=== PATIENT | female | born 1990 | race African-American/Black ===

== ENCOUNTER 2018-09-30 23:32 | Emergency (ER) | payer OTHER ==
--- NOTE | 2018-10-01 00:32 | PDOC ---
History of Present Illness <Mel Marie - Last Filed: 10/01/18 00:32> - History of Present Illness Initial Comments: This patient is a 27 year old female with no significant PMHx , who presents with left sided back pain since 4pm. She states pain is located near the left scapula, does not radiate and worse upon inhalation and movement. She came in today because she states it is affecting her sleep She also endorses a headache. Denies h/o trauma. Denies any recent fever, chills, cough, nausea, vomiting, diarrhea. Surgical Hx: denies Social Hx: denies cigarette, alcohol or drug use. PCP: Located at [address] [place] [address]. 10/01/18 01:19 <Jannet Cruz - Last Filed: 10/01/18 01:19> <Kerline Lowe - Last Filed: 10/01/18 04:19> - General Chief Complaint: Back Pain Stated Complaint: BACK PAIN/DIFFICULTY BREATHING Time Seen by Provider: 10/01/18 00:16 Past History - Suicide/Smoking/Psychosocial Hx Smoking Status: No Smoking History: Never smoked Number of Cigarettes Smoked Daily: 0 <Mel Marieh - Last Filed: 10/01/18 00:32> <Jannet Cruz - Last Filed: 10/01/18 01:19> <Kerline Lowe - Last Filed: 10/01/18 04:19> - Past Medical History Allergies/Adverse Reactions: Allergies Allergy/AdvReac Type Severity Reaction Status Date / Time No Known Allergies Allergy Verified 02/10/13 14:50 Home Medications: Ambulatory Orders No Home Medications 0 dose .ROUTE UTDICT 02/10/13 Nitrofurantoin Monohyd/M-Cryst [Macrobid -] 100 mg PO BID #14 capsule 10/01/18 Review of Systems - Review of Systems Comments:: CONSTITUTIONAL: Absent: fever, no chills, no fatigue EYES: Absent: visual changes ENT: Absent: ear pain, no sore throat CARDIOVASCULAR: Absent: chest pain, no palpitations RESPIRATORY: Absent: cough, no SOB GI: Absent: abdominal pain, no nausea, no vomiting, no constipation, no diarrhea GENITOURINARY: Absent: dysuria, no frequency, no hematuria MUSCULOSKELETAL: Present: left scapula pain Absent: no arthralgia SKIN: Absent: rash NEURO: Present: headache 10/01/18 00:49 <Jannet Cruz - Last Filed: 10/01/18 01:19> *Physical Exam - Physical Exam Comments: GENERAL: Well-appearing, well-nourished. No apparent distress. HEENT: Normocephalic, atraumatic. PERRL, EOM intact. NECK: No JVD or bruits. CARDIOVASCULAR: Regular rate and rhythm. PULMONARY: Clear to auscultation bilaterally. ABDOMEN: Soft, non-distended, non-tender. EXTREMITIES: Normal ROM in all four extremities. No gross deformities. SKIN: Warm, dry. No rash NEUROLOGICAL: No focal neurological deficits. 10/01/18 00:52 <Jannet Cruz - Last Filed: 10/01/18 01:19> - Vital Signs Last Vital Signs Temp Pulse Resp BP Pulse Ox 98.4 F 80 18 114/73 99 09/30/18 23:57 09/30/18 23:57 09/30/18 23:57 09/30/18 23:57 09/30/18 23:57 <Kerline Lowe - Last Filed: 10/01/18 04:19> Moderate Sedation - Procedure Monitoring Vital Signs: Procedure Monitoring Vital Signs Temperature 98.4 F 09/30/18 23:57 Pulse Rate 80 09/30/18 23:57 Respiratory Rate 18 09/30/18 23:57 Blood Pressure 114/73 09/30/18 23:57 O2 Sat by Pulse Oximetry (%) 99 09/30/18 23:57 <Kerline Lowe - Last Filed: 10/01/18 04:19> ED Treatment Course - LABORATORY CBC & Chemistry Diagram: 10/01/18 01:23 10/01/18 01:23 - ADDITIONAL ORDERS Additional order review: Laboratory Results 10/01/18 10/01/18 10/01/18 01:23 01:23 00:30 D-Dimer < 215 Sodium Cancelled Potassium Cancelled Chloride Cancelled Carbon Dioxide Cancelled Anion Gap Cancelled BUN Cancelled Creatinine Cancelled Creat Clearance w eGFR Cancelled Random Glucose Cancelled Calcium Cancelled Urine Color Yellow Urine Appearance Cloudy Urine pH 6.0 Ur Specific [place] 1.028 Urine Protein Negative Urine Glucose (UA) Negative Urine Ketones Negative Urine Blood Negative Urine Nitrite Negative Urine Bilirubin Negative Urine Urobilinogen 4.0 e.u/dl H Ur Leukocyte Esterase 1+ H Urine WBC (Auto) 3 Urine RBC (Auto) 4 Ur Epithelial Cells Moderate Urine Bacteria Rare Urine Mucus Many Urine HCG, Qual 10/01/18 00:30 D-Dimer Sodium Potassium Chloride Carbon Dioxide Anion Gap BUN Creatinine Creat Clearance w eGFR Random Glucose Calcium Urine Color Urine Appearance Urine pH Ur Specific [place] Urine Protein Urine Glucose (UA) Urine Ketones Urine Blood Urine Nitrite Urine Bilirubin Urine Urobilinogen Ur Leukocyte Esterase Urine WBC (Auto) Urine RBC (Auto) Ur Epithelial Cells Urine Bacteria Urine Mucus Urine HCG, Qual Negative 10/01/18 01:23 RBC 4.37 MCV 84.5 MCHC 33.7 RDW 13.9 MPV 9.5 Neutrophils % 47.0 Lymphocytes % 44.0 H Monocytes % 6.8 Eosinophils % 1.8 Basophils % 0.4 <Kerline Lowe - Last Filed: 10/01/18 04:19> Medical Decision Making - Medical Decision Making 10/01/18 03:33 Pt signed out to [place]; her Ddimer is normal. Labs normal; CXR normal. Exam normal. vitals normal <Kerline Lowe - Last Filed: 10/01/18 04:19> *DC/Admit/Observation/Transfer <Mel Marie - Last Filed: 10/01/18 00:32> - Attestations Scribe Attestion: 10/01/18 00:51 Documentation prepared by Jannet Cruz, acting as medical equipment repairer for Mel Marie MD. <Jannet Cruz - Last Filed: 10/01/18 01:19> - Discharge Dispostion Decision to Admit order: No <Kerline Lowe - Last Filed: 10/01/18 04:19> Diagnosis at time of Disposition: UTI (urinary tract infection), Chest pain - Discharge Dispostion Disposition: HOME Condition at time of disposition: Improved - Prescriptions Prescriptions: Nitrofurantoin Monohyd/M-Cryst [Macrobid -] 100 mg PO BID #14 capsule - Patient Instructions Printed Discharge Instructions: DI for Urinary Tract Infection (UTI) - Post Discharge Activity Forms/Work/School Notes: Back to Work
[2018-10-01 00:54] LABS: URINE APPEARANCE CLOUDY; URINE BILIRUBIN NEGATIVE (<2.0 mg/dL); URINE COLOR YELLOW; URINE GLUCOSE (UA) NEGATIVE (NEGATIVE); URINE KETONE NEGATIVE (NEGATIVE); URINE LEUK ESTERASE 1+ (NEGATIVE); URINE NITRITE NEGATIVE (NEGATIVE); URINE PROTEIN NEGATIVE (NEGATIVE); URINE UROBILINOGEN 4.0 E.U/dl mg/dL (0.2-1.0)
[2018-10-01 00:56] VITALS: BMI 23.3
[2018-10-01 00:57] LABS: EPI CELLS MODERATE /HPF (FEW); URINE BACTERIA RARE /hpf (NONE SEEN); URINE MUCUS MANY
[2018-10-01 01:40] LABS: BASO % 0.4 % (0-2.0); EOS % 1.8 % (0-4.5); HEMATOCRIT 36.9 % (32.4-45.2); HEMOGLOBIN 12.4 GM/dL (10.7-15.3); MCH 28.5 pg (25.7-33.7); MCHC 33.7 g/dl (32.0-36.0); MEAN CELL VOLUME 84.5 fl (80-96); MEAN PLT VOLUME 9.5 fl (7.5-11.1); MONO % 6.8 % (3.8-10.2); PLATELET COUNT 215 K/MM3 (134-434); RBC 4.37 M/mm3 (3.60-5.2); RDW 13.9 % (11.6-15.6); WHITE BLOOD COUNT 5.8 K/mm3 (4.0-10.0)
[2018-10-01 04:25] VITALS: BP 128/71; PULSE 88; TEMP 98.3
--- NOTE | 2018-10-01 11:08 | EKG ---
Test Reason : Blood Pressure : / mmHG Vent. Rate : 075 BPM Atrial Rate : 075 BPM P-R Int : 168 ms QRS Dur : 074 ms QT Int : 376 ms P-R-T Axes : 046 053 037 degrees QTc Int : 419 ms NORMAL SINUS RHYTHM NORMAL ECG NO PREVIOUS ECGS AVAILABLE Confirmed by DARSHANA BANKS MD ([id number]) on 10/01/2018 11:08:15 AM Referred By: Confirmed By:DARSHANA BANKS MD
== END 2018-10-01 04:19 | disposition home or self-care (01) ==
LOC: JER 23:32
DX: N39.0 Urinary tract infection, site not specified (principal); R07.9 Chest pain, unspecified
CPT/HCPCS: 36415; 71046-TC-FY; 81003; 81015; 84703; 85025; 85379; 93005; 93010; 99281-25

== ENCOUNTER 2019-04-04 19:00 | Emergency (ER) | payer OTHER | END 2019-04-04 20:25 | disposition home or self-care (01) | LOC: JERFT 19:00 ==

== ENCOUNTER 2019-10-02 22:15 | Emergency (ER) | payer OTHER ==
[2019-10-02 22:39] VITALS: BP 114/71; PULSE 78; TEMP 98.8; BMI 23.5
--- NOTE | 2019-10-02 22:59 | PDOC ---
Documentation entered by Luz Shabazz SCRIBE, acting as scribe for Haresh Tate MD. Haresh Tate MD: This documentation has been prepared by the scribe, Luz Shabazz SCRIBE, under my direction and personally reviewed by me in its entirety. I confirm that the documentation accurately reflects all work , treatment, procedures, and medical decision making performed by me. History of Present Illness - General Chief Complaint: Vaginal Bleeding Stated Complaint: VAG BLEED History Source: Patient Exam Limitations: No Limitations - History of Present Illness Initial Comments: 10/02/19 22:58 The patient is a 28-year-old female, [id number], who presents to the emergency department with vaginal bleeding. The patient reports following up with her OB a few days back, where she had blood work done and u/s. The patient reports u/s was significant for heartbeats. The patient reports during the visit, she did have some vaginal spotting, which has resolved, until today. The patient reports her OB called yesterday with the lab results, which was significant for the progesterone of 4.8 and was prescribed promethazine. The patient states she was out having lunch when she had an onset of vaginal bleeding. The patient describes it as darker than prior episodes, associated with abdominal cramping. Denies urinary symptoms. The patient reports she also got a call from the OB tonight states she had a vaginal bacterial infection for which she was prescribed a 5-day gel course. PAST MEDICAL HISTORY: no significant history PAST SURGICAL HISTORY: no significant history FAMILY HISTORY: no pertinent history SOCIAL HISTORY: Pt lives with family and is employed. MEDICATIONS: reviewed ALLERGIES: As per nursing notes Review of system: General: No fevers or chills, no weakness, no weight loss HEENT: No change in vision. No sore throat,. No ear pain CardioVascular: No chest pain or shortness of breath Respiratory: No cough, or wheezing. Gastrointestinal: +abdominal cramping. no nausea, vomiting, diarrhea or constipation, No rectal bleeding Genitourinary: +vaginal bleeding. No dysuria, hematuria, or frequency Musculoskeletal: No joint or muscle pain or swelling Neurologic: No headache, vertigo, dizziness or loss of consciousness Psychiatric: nor depression Skin: No rashes or easy bruising Endocrine: no increased thirst or abnormal weight change Allergic: no skin or latex allergy All other systems reviewed and normal Physical exam: GENERAL: The patient is awake, alert, and fully oriented, in no acute distress. HEAD: Normal with no signs of trauma. EYES: Pupils equal, round and reactive to light, extraocular movements intact, sclera anicteric, conjunctiva clear. EXTREMITIES: Normal range of motion, no edema. NEUROLOGICAL: Normal speech, normal gait. PSYCH: Normal mood, normal affect. SKIN: Warm, Dry, normal turgor, no rashes or lesions noted. : +darkish discharge vaginally, Os closed, no adnexal tenderness or masses. 10/03/19 01:44 Assessment and plan: This is a 28-year-old female comes in with vaginal bleeding. Patient is 7 weeks by dates. Patient had an ultrasound that showed a normal IUP, normal size with heart rate it also showed a small subchorionic bleed. Patient is aware of the ultrasound report Patient's hCG was 33,858. Patient is type a positive Patient discharged we will follow-up with her OB 10/03/19 01:45 Past History - Past Medical History Allergies/Adverse Reactions: Allergies Allergy/AdvReac Type Severity Reaction Status Date / Time No Known Allergies Allergy Verified 04/04/19 19:24 Home Medications: Ambulatory Orders Cyclobenzaprine HCl [Flexeril -] 10 mg PO HS #10 tablet 04/04/19 Ibuprofen 600 mg PO Q6H #30 tablet 04/04/19 COPD: No - Psycho Social/Smoking Cessation Hx Smoking Status: No Smoking History: Never smoked Have you smoked in the past 12 months: No Number of Cigarettes Smoked Daily: 0 Hx Alcohol Use: No Drug/Substance Use Hx: No Substance Use Type: None ED Treatment Course - LABORATORY CBC & Chemistry Diagram: 10/02/19 23:00 10/02/19 23:00 Discharge - Discharge Information Problems reviewed: Yes Clinical Impression/Diagnosis: Vaginal bleeding during Condition: Good Disposition: HOME - Admission No - Follow up/Referral - Patient Discharge Instructions Additional Instructions: Return to the emergency department immediately with ANY new, persistent or worsening symptoms. Continue any medications as previously prescribed by your physician. You should follow up with your OB doctor as soon as possible regarding today's emergency department visit. . Please make sure your doctor reviews the results of your emergency evaluation. Thank you for coming to the Emergency Department today for your care. It was a pleasure to see you today. Please note that your evaluation is INCOMPLETE until you follow-up with your doctor. - Post Discharge Activity
[2019-10-02 23:25] LABS: BASO % 0.6 % (0-2.0); EOS % 6.6 % (0-4.5); HEMATOCRIT 34.5 % (32.4-45.2); HEMOGLOBIN 11.2 GM/dl (10.7-15.3); LYMPH % 30.8 % (8-40); MCHC 32.6 g/dl (32.0-36.0); MEAN PLT VOLUME 9.2 fl (7.5-11.1); MONO % 8.6 % (3.8-10.2); NEUT % 53.4 % (42.8-82.8); PLATELET COUNT 184 K/MM3 (134-434); RBC 4.01 M/mm3 (3.60-5.2); RDW 12.1 % (11.6-15.6); WHITE BLOOD COUNT 6.4 K/mm3 (4.0-10.8)
[2019-10-02 23:37] LABS: BILIRUBIN,TOTAL 0.4 mg/dl (0.2-1); CALCIUM 9.4 mg/dl (8.5-10); CREATININE 0.7 mg/dl (0.55-1.3); POTASSIUM 3.8 mmol/L (3.5-5.1); TOT PROT 7.1 g/dl (6.4-8.2)
== END 2019-10-03 01:53 | disposition home or self-care (01) ==
LOC: FER 22:15
DX: O26.891 Other specified pregnancy related conditions, first trimester (principal); Z3A.01 Less than 8 weeks gestation of pregnancy; N93.9 Abnormal uterine and vaginal bleeding, unspecified
CPT/HCPCS: 36415; 76817-TC; 80053; 84702; 85025; 86850; 86900; 86901; 99284-25

== ENCOUNTER 2019-11-11 22:23 | Emergency (ER) | payer OTHER ==
[2019-11-11 22:32] VITALS: BP 116/64; PULSE 63; TEMP 98.3; BMI 24.4
[2019-11-12 00:44] LABS: PH,URINE 6.5 (5.0-8.0); URINE APPEARANCE CLEAR; URINE BILIRUBIN NEGATIVE (NEGATIVE); URINE COLOR YELLOW; URINE GLUCOSE (UA) NEGATIVE (NEGATIVE); URINE KETONE NEGATIVE (NEGATIVE); URINE LEUK ESTERASE NEGATIVE (NEGATIVE); URINE NITRITE NEGATIVE (NEGATIVE); URINE PROTEIN NEGATIVE (NEGATIVE); URINE UROBILINOGEN 0.2 mg/dL (0.2-1.0)
--- NOTE | 2019-11-12 01:12 | PDOC ---
Documentation entered by Isamar Acosta SCRIBE, acting as scribe for Mel Marie MD. Mel Marie MD: This documentation has been prepared by the Karla jeffrey Nirvannie, SCRIBE, under my direction and personally reviewed by me in its entirety. I confirm that the documentation accurately reflects all work, treatment, procedures, and medical decision making performed by me. History of Present Illness - General Chief Complaint: Vaginal Bleeding Stated Complaint: BLEEDING 13WKS Time Seen by Provider: 11/11/19 23:44 History Source: Patient Exam Limitations: No Limitations - History of Present Illness Initial Comments: 11/12/19 00:18 The patient is a 29 year old 12 weeks female with no significant past medical history, who presents to the emergency department with vaginal bleeding and pelvic cramping. As per patient, she was evaluated in the ED 10/02 at which time she was seen to have a single live IUP at 6 weeks 5 days with a heartbeat. Patient notes her symptoms onset once again, prompting her arrival to the ED. She denies recent fevers, chills, headache or dizziness. She denies recent dysuria, frequency, urgency or hematuria. She denies recent chest pain or shortness of breath. 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 Wiggins ([place], last visit 11/04) Past History - Past Medical History Allergies/Adverse Reactions: Allergies Allergy/AdvReac Type Severity Reaction Status Date / Time No Known Allergies Allergy Verified 11/11/19 22:29 Home Medications: Ambulatory Orders Cyclobenzaprine HCl [Flexeril -] 10 mg PO HS #10 tablet 04/04/19 Ibuprofen 600 mg PO Q6H #30 tablet 04/04/19 COPD: No - Psycho Social/Smoking Cessation Hx Smoking Status: No Smoking History: Never smoked Have you smoked in the past 12 months: No Number of Cigarettes Smoked Daily: 0 Hx Alcohol Use: No Drug/Substance Use Hx: No Substance Use Type: None Review of Systems - Review of Systems Able to Perform ROS?: Yes Comments:: 11/12/19 00:20 CONSTITUTIONAL: Absent: fever, chills, diaphoresis, generalized weakness, malaise, loss of appetite HEENT: Absent: rhinorrhea, nasal congestion, throat pain, throat swelling, difficulty swallowing, mouth swelling, ear pain, eye pain, visual Changes CARDIOVASCULAR: Absent: chest pain, syncope, palpitations, irregular heart rate, lightheadedness , peripheral edema RESPIRATORY: Absent: cough, shortness of breath, dyspnea with exertion, orthopnea, wheezing, stridor, hemoptysis GASTROINTESTINAL: Absent: abdominal pain, abdominal distension, nausea, vomiting, diarrhea, constipation, melena, hematochezia GENITOURINARY: Present: Vaginal bleeding, pelvic cramping. Absent: dysuria, frequency, urgency, hesitancy, hematuria, flank pain, genital pain MUSCULOSKELETAL: Absent: myalgia, arthralgia, joint swelling SKIN: Absent: rash, itching, pallor HEMATOLOGIC/IMMUNOLOGIC: Absent: easy bleeding, easy bruising, lymphadenopathy, frequent infections ENDOCRINE: Absent: unexplained weight gain, unexplained weight loss, heat intolerance, cold intolerance NEUROLOGIC: Absent: headache, focal weakness or paresthesias, dizziness, unsteady gait, seizure, mental status changes, bladder or bowel incontinence PSYCHIATRIC: Absent: anxiety, depression, suicidal or homicidal ideation, hallucinations. All Other Systems: Reviewed and Negative *Physical Exam - Vital Signs Last Vital Signs Temp Pulse Resp BP Pulse Ox 98.3 F 63 18 116/64 100 11/11/19 22:29 11/11/19 22:29 11/11/19 22:29 11/11/19 22:29 11/11/19 22:29 - Physical Exam 11/12/19 00:21 GENERAL: Well developed, well nourished. Awake and alert. No acute distress. HEENT: Normocephalic, atraumatic. PERRLA, EOMI. No conjunctival pallor. Sclera are non- icteric. Moist mucous membranes. Oropharynx is clear. NECK: Supple. Full ROM. No JVD. Carotid pulses 2+ and symmetric, without bruits. No thyromegaly. No lymphadenopathy. CARDIOVASCULAR: Regular rate and rhythm. No murmurs, rubs, or gallops. Distal pulses are 2+ and symmetric. PULMONARY: No evidence of respiratory distress. Lungs clear to auscultation bilaterally. No wheezing, rales or rhonchi. ABDOMINAL: Soft. Non-tender. Non-distended. No rebound or guarding. No organomegaly. Normoactive bowel sounds. MUSCULOSKELETAL Normal range of motion at all joints. No bony deformities or tenderness. No CVA tenderness. EXTREMITIES: No cyanosis. No clubbing. No edema. No calf tenderness. SKIN: Warm and dry. Normal capillary refill. No rashes. No jaundice. NEUROLOGICAL: Alert, awake, appropriate. Cranial nerves 2-12 intact. No deficits to light touch and temperature in face, upper extremities and lower extremities. No motor deficits in the in face, upper extremities and lower extremities. Normoreflexic in the upper and lower extremities. Normal speech. Toes are down- going bilaterally. Gait is normal without ataxia. PSYCHIATRIC: Cooperative. Good eye contact. Appropriate mood and affect. ED Treatment Course - ADDITIONAL ORDERS Additional order review: Laboratory Results 11/12/19 00:01 Urine Color Yellow Urine Appearance Clear Urine pH 6.5 Ur Specific [place] 1.007 L Urine Protein Negative Urine Glucose (UA) Negative Urine Ketones Negative Urine Blood Negative Urine Nitrite Negative Urine Bilirubin Negative Urine Urobilinogen 0.2 Ur Leukocyte Esterase Negative - RADIOLOGY Radiology Studies Ordered: Category Date Time Status <14WKS US [US] Stat Ultrasound 11/12/19 23:57 Taken Radiograph Interpretation: 11/12/19 01:07 EXAM: <14WKS US and pelvic duplex HISTORY: Threatened FINDINGS: Ultrasound :Uterus is anteverted and measures 12.4centimeters in length. There is a single live IUP with estimated gestational age of 12weeks and 2days. There is a normal heart rate of 154beats per minute. There is no subchorionic bleed. The right ovary measures 3.8centimeters in length and appears normal. The left ovary measures 4.0centimeters in length and appears normal. There is no significant free fluid. Pelvic duplex: There is normal arterial and venous flow in both ovaries IMPRESSION: Live IUP estimated age 12 weeks 2 days without definite abnormalities. Read by: Phil Fan MD Medical Decision Making - Medical Decision Making 11/12/19 01:10 Transvaginal ultrasound showed a single live IUP with estimated gestational age of 12 weeks and 2 days There is a normal heart rate of 154 bpm There is no subchorionic bleed no The right ovary measures 3.8 cm in length and appears normal The left ovary measures 4 cm in length and appears normal There is no significant free fluid There is both normal arterial and venous flow to both ovaries Impression single live IUP of 12 weeks and 2 days without any definite abnormalities Urinalysis was negative for any infection imp threatened AB plan follow up with 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
== END 2019-11-12 01:22 | disposition home or self-care (01) ==
LOC: JER 22:23
DX: O26.891 Other specified pregnancy related conditions, first trimester (principal); O21.0 Mild hyperemesis gravidarum; Z3A.12 12 weeks gestation of pregnancy
CPT/HCPCS: 76801-TC; 81003; 99281-25

== ENCOUNTER 2022-09-23 15:51 | Emergency (ER) | payer OTHER ==
[2022-09-23 16:27] VITALS: BP 104/65; PULSE 75; RESP 20; TEMP 98.3; BMI 25.8
[2022-09-23] MEDS ORDERED: KETOROLAC TROMETHAMINE 30 MG/1 ML VIAL IM ONE (17:07)
[2022-09-23] MEDS ORDERED: LIDOCAINE 5% TOPICAL PATCH TP ONE ×2 (17:07→18:53)
[2022-09-23] MEDS ORDERED: METHOCARBAMOL 500 MG TABLET PO ONE (17:07)
[2022-09-23] MEDS ORDERED: METHOCARBAMOL 500 MG TABLET ONE (17:09)
[2022-09-23] MEDS ORDERED: LIDOCAINE 5% TOPICAL PATCH ONE ×2 (17:09→19:03)
[2022-09-23] MEDS ORDERED: KETOROLAC TROMETHAMINE 30 MG/1 ML VIAL ONE (17:09)
[2022-09-23] MEDS ORDERED: ACETAMINOPHEN 325 MG TABLET (FP) PO ONE (18:53)
[2022-09-23] MEDS ORDERED: ACETAMINOPHEN 325 MG TABLET (FP) ONE (19:04)
[2022-09-23] MEDS ORDERED: LIDOCAINE PATCH REMOVAL MC SCH (22:00)
== END 2022-09-23 22:26 | disposition home or self-care (01) ==
LOC: JERFT 15:51
PROC: 3E023GC Introduction of Other Therapeutic Substance into Muscle, Percutaneous Approach (ICD-10-PCS; principal; 2022-09-23)
DX: M54.50 Low back pain, unspecified (principal)
CPT/HCPCS: 99284-25

== ENCOUNTER 2023-05-12 12:03 | Emergency (ER) | payer OTHER ==
[2023-05-12 12:24] VITALS: BP 100/68; PULSE 76; RESP 18; TEMP 98.7; BMI 25.8
[2023-05-12] MEDS ORDERED: IBUPROFEN 600 MG TABLET (FP) PO ONE ×2 (12:59→13:01)
[2023-05-12] MEDS ORDERED: DEXAMETHASONE SOD PHOSPHATE 10 MG/1 ML VIAL PO ONE (12:59)
[2023-05-12] MEDS ORDERED: DEXAMETHASONE SOD PHOSPHATE 10 MG/1 ML VIAL ONE (13:01)
== END 2023-05-12 13:22 | disposition home or self-care (01) ==
LOC: JERFT 12:03
DX: J02.0 Streptococcal pharyngitis (principal)
CPT/HCPCS: 99283-25; J1100

== ENCOUNTER 2023-06-05 17:54 | Inpatient (IN) | payer OTHER ==
[2023-06-05 18:12] VITALS: BMI 26.2
[2023-06-05] MEDS ORDERED: KETOROLAC TROMETHAMINE 30 MG/1 ML VIAL IVPUSH ONE (19:37)
[2023-06-05] MEDS ORDERED: KETOROLAC TROMETHAMINE 60 MG/2 ML VIAL ONE (19:48)
[2023-06-05 20:18] LABS: BASO % 0.2 % (0-2.0); EOS % 1.5 % (0-4.5); HEMATOCRIT 36.9 % (32.4-45.2); HEMOGLOBIN 11.7 GM/dL (10.7-15.3); LYMPH % 14.3 % (8-40); MCH 27.2 pg (25.7-33.7); MCHC 31.8 g/dl (32.0-36.0); MEAN CELL VOLUME 85.5 fl (80-96); MEAN PLT VOLUME 9.8 fl (7.5-11.1); PLATELET COUNT 215 10^3/uL (134-434); RBC 4.32 M/mm3 (3.60-5.2); RDW 13.7 % (11.6-15.6); WHITE BLOOD COUNT 10.8 K/mm3 (4.0-10.0)
[2023-06-05 20:30] LABS: CHLORIDE 106 mmol/L (98-107); POTASSIUM 3.9 mmol/L (3.5-5.1); SODIUM 140 mmol/L (136-145)
[2023-06-05 20:32] LABS: CALCIUM 9.2 mg/dL (8.5-10.1)
[2023-06-05 20:34] LABS: ALBUMIN 3.8 g/dl (3.4-5.0); ANION GAP 7 MMOL/L (8-16); BLOOD UREA NITROGEN 13.2 mg/dL (7-18); CO2 27 mmol/L (21-32); GLUCOSE,RANDOM 127 mg/dL (74-106)
[2023-06-05 20:36] LABS: CREATININE 0.8 mg/dL (0.55-1.3); SGOT/AST 12 U/L (15-37); SGPT/ALT 23 U/L (13-61)
[2023-06-05 20:38] LABS: BILIRUBIN,TOTAL 0.4 mg/dL (0.2-1); TOT PROT 7.3 g/dl (6.4-8.2)
[2023-06-05 20:39] LABS: ALK PHOS 45 U/L (45-117)
[2023-06-05 21:14] LABS: ERYTHROCYTE SEDIMENTATION RATE 31 mm/hr (0-20)
[2023-06-05] MEDS ORDERED: VANCOMYCIN 1 GM PREMIX - 1 GM/200 ML BAG IVPB ONE (22:43)
[2023-06-05] MEDS ORDERED: PIPERACILLIN/TAZOB 2.25 GM 2.25 GM in DEXTROSE 5%-WATER - 50 ML IVPB ONE (22:44)
[2023-06-05] MEDS ORDERED: PIPERACILLIN/TAZOB 2.25 GM 2.25 GM/50 ML BAG IVPB ONE (22:48)
[2023-06-05] MEDS ORDERED: VANCOMYCIN/WATER FOR INJ (PEG) 1,000 MG/200 ML BAG IVPB ONE (23:01)
[2023-06-06] MEDS ORDERED: ACETAMINOPHEN 1000 MG/100 ML BAG IVPB PRN (02:44)
[2023-06-06] MEDS ORDERED: ACETAMINOPHEN 1000 MG/100 ML BAG IVPB SCH (03:30)
[2023-06-06] MEDS ORDERED: ACETAMINOPHEN INJECTION 100 ML IVPB ONE (05:44)
[2023-06-06] MEDS ORDERED: PIPERACILLIN/TAZOB 3.375 GM 3.375 GM in DEXTROSE 5%-WATER - 50 ML IVPB SCH ×2 (07:00→13:00)
[2023-06-06] MEDS ORDERED: ONDANSETRON 4 MG/2 ML VIAL IVPUSH PRN (08:09)
[2023-06-06] MEDS ORDERED: oxyCODONE HCL 5 MG TABLET PO PRN ×2 (08:09→16:40)
[2023-06-06] MEDS ORDERED: LACTATED RINGERS SOLUTION 1,000 ML IV SCH ×2 (08:15→16:40)
[2023-06-06] MEDS ORDERED: VANCOMYCIN/WATER FOR INJ (PEG) 1,000 MG/200 ML BAG IVPB SCH (10:00)
[2023-06-06] MEDS ORDERED: ENOXAPARIN NA (PORCINE) 40 MG/0.4 ML DISP.SYRIN SQ SCH (10:00)
[2023-06-06] MEDS ORDERED: VANCOMYCIN 1,000 MG in DEXTROSE 5%-WATER - 250 ML IVPB SCH (11:00)
[2023-06-06] MEDS ORDERED: LIDOCAINE HCL/PF 2% SDV 5ML VIAL ONE (15:53)
[2023-06-06] MEDS ORDERED: MIDAZOLAM HCL 2 MG/2 ML SINGLE DOSE VIAL ONE ×2 (15:53→16:40)
[2023-06-06] MEDS ORDERED: PROPOFOL 40 ML ONE (15:53)
[2023-06-06] MEDS ORDERED: HYDROmorphone HCl 2 MG/ML VIAL ONE (16:02)
[2023-06-06] MEDS ORDERED: PHENYLEPHRINE HCL 10 MG/1 ML SINGLE DOSE VIAL ONE (16:22)
[2023-06-06] MEDS ORDERED: IBUPROFEN 600 MG TABLET (FP) PO PRN (16:40)
[2023-06-06] MEDS ORDERED: ACETAMINOPHEN 1000 MG/100 ML BAG IVPB ONE ×2 (16:51→16:52)
[2023-06-06] MEDS: LACTATED RINGERS SOLUTION 1,000 ML IV SCH (17:00)
[2023-06-06 18:26] VITALS: RESP 18
[2023-06-06] MEDS: oxyCODONE HCL 5 MG TABLET PO PRN (18:54)
[2023-06-06] MEDS: PIPERACILLIN/TAZOB 3.375 GM 3.375 GM in DEXTROSE 5%-WATER - 50 ML IVPB SCH ×2 (21:17→21:18)
[2023-06-06] MEDS: ACETAMINOPHEN 1000 MG/100 ML BAG IVPB SCH (21:30)
[2023-06-06] MEDS: DOCUSATE SODIUM 100 MG CAPSULE (FP) PO SCH (21:36)
[2023-06-07] MEDS: ACETAMINOPHEN 1000 MG/100 ML BAG IVPB SCH ×2 (06:00→12:54)
[2023-06-07 08:07] LABS: BASO % 0.1 % (0-2.0); EOS % 0.1 % (0-4.5); HEMATOCRIT 34.4 % (32.4-45.2); HEMOGLOBIN 10.9 GM/dL (10.7-15.3); LYMPH % 13.1 % (8-40); MCH 27.1 pg (25.7-33.7); MCHC 31.7 g/dl (32.0-36.0); MEAN CELL VOLUME 85.7 fl (80-96); MEAN PLT VOLUME 9.7 fl (7.5-11.1); MONO % 5.4 % (3.8-10.2); NEUT % 81.3 % (42.8-82.8); PLATELET COUNT 232 10^3/uL (134-434); RBC 4.02 M/mm3 (3.60-5.2); RDW 13.4 % (11.6-15.6); WHITE BLOOD COUNT 9.4 K/mm3 (4.0-10.0)
[2023-06-07 08:42] LABS: POTASSIUM 4.8 mmol/L (3.5-5.1)
[2023-06-07 08:51] LABS: BLOOD UREA NITROGEN 14.3 mg/dL (7-18); CALCIUM 8.7 mg/dL (8.5-10.1)
[2023-06-07 08:54] LABS: CREATININE 0.7 mg/dL (0.55-1.3)
[2023-06-07] MEDS: DOCUSATE SODIUM 100 MG CAPSULE (FP) PO SCH (09:16)
[2023-06-07] MEDS: LACTATED RINGERS SOLUTION 1,000 ML IV SCH ×2 (12:53→18:13)
[2023-06-07] MEDS: AMOX TR/POT CLAV 500MG/125MG TABLETS (FP) PO SCH ×2 (13:19→18:13)
[2023-06-07 14:04] VITALS: BP 99/51; PULSE 92; TEMP 98.2
[2023-06-07] MEDS: oxyCODONE HCL 5 MG TABLET PO PRN (15:35)
== END 2023-06-07 19:24 | disposition home or self-care (01) | DRG 346 ==
LOC: JERFT 17:54 → JER 17:54 → JERBED 22:41 → J6S 06-06 17:55
PROVIDERS: ADMIT Internal Medicine
PROC: 0D9P0ZZ Drainage of Rectum, Open Approach (ICD-10-PCS; principal; 2023-06-06 14:30)
DX: K61.1 Rectal abscess (principal)
CPT/HCPCS: 36415; 72192-TC; 80048; 80053; 82962; 83605; 84702; 85025; 85651; 86140; 87040; 87070; 87077; 87081; 87205; 93005; 93010; 94760; 99285-25

== ENCOUNTER 2025-05-27 18:43 | Emergency (ER) | payer OTHER ==
[2025-05-27 18:55] VITALS: BP 107/67; PULSE 81; RESP 18; TEMP 98.1; BMI 27.7
== END 2025-05-27 19:45 | disposition left against medical advice (07) ==
LOC: JER 18:43
DX: K61.1 Rectal abscess (principal)
CPT/HCPCS: 99285-25

== ENCOUNTER 2025-05-27 21:34 | Emergency (ER) | payer OTHER ==
[2025-05-27 21:42] VITALS: BP 116/76; PULSE 85; RESP 16; TEMP 98.2; BMI 27.3
[2025-05-28 00:39] LABS: HCV DIAGNOSTIC IN-HOUSE W/RFLX NON-REACTIVE (NONREACTIVE)
[2025-05-28 00:44] LABS: HIV INTERPRETATION NEGATIVE (NEGATIVE)
== END 2025-05-27 22:09 | disposition home or self-care (01) ==
LOC: FER 21:34
DX: L02.31 Cutaneous abscess of buttock (principal)
CPT/HCPCS: 36415; 86803; 87389; 99283-25